=== PATIENT | male | born 1990 | race African-American/Black ===

== ENCOUNTER 2019-05-28 12:53 | Emergency (ER) | payer OTHER ==
[~2019-05-28] VITALS: Ht 175.3 cm; Wt 83.9 kg
[2019-05-28 13:05] VITALS: BP 112/80
[2019-05-28] MEDS ORDERED: PROAIR HFA8.5 GM INH (13:05)
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
[2019-05-28] MEDS ORDERED: Neosporin Oint Ud Pkt TOPIC ONE (13:15)
[2019-05-28] MEDS ORDERED: Tetanus/Diptheria/Pertussis IM ONE (13:15)
[2019-05-28] MEDS ORDERED: MUPIROCIN22 GM TOPIC (13:18)
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
[2019-05-28 14:25] VITALS: BP 122/77
--- NOTE | 2019-05-28 14:25 | NUR ---
ER DISCHARGE NOTE: Patient is cleared to be discharged per PA, pt is aox4, on room air, with stable vital signs. pt was given dc and prescription instructions, pt was able to verbalize understanding, pt id band removed without complications. pt is able to ambulate with steady gait. pt took all belongings.
== END 2019-05-28 14:25 | disposition home or self-care (01) ==
LOC: EMR 13:14
DX: S50.812A Abrasion of left forearm, initial encounter (principal); S50.811A Abrasion of right forearm, initial encounter; Y04.2XXA Assault by strike against or bumped into by another person, initial encounter; Z23 Encounter for immunization
CPT/HCPCS: 86703; 86803; 87340; 87517; 87536; 90471; 90715; 99283